=== PATIENT | female | born 1980 | race American Indian/Alaskan Native ===

== ENCOUNTER 2017-05-03 09:45 | Emergency (ER) | payer OTHER ==
[2017-05-03 10:03] VITALS: BP 124/70
--- NOTE | 2017-05-03 10:37 | EDM.PDOC ---
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 This started this morning about 3-4 hours ago. She does have history of in vitro fertilization almost 4 weeks ago. She did have an ultrasound done up in [place] 2 days ago which did show twins within the uterus, visible heart activity according to patient. She did have some slight spotting about a week ago but that was more of a brownish type coloration, nothing acutely red with clots like this morning. She states she did soak at least half a pad this morning and did have some clots and continues to have mild lower pelvic discomfort. The pain does not radiate to her back. There is no upper abdominal pain. No chest pain shoulder pain or difficulty breathing. - Related Data Allergies Allergy/AdvReac Type Severity Reaction Status Date / Time No Known Allergies Allergy Verified 09/30/13 20:06 Home Meds: Home Meds Estradiol. 09/30/13 [History] Past Medical History - Past Health History Medical/Surgical History: Denies Medical/Surgical History Social & Family History - Tobacco Use Smoking Status *Q: Never Smoker Years of Tobacco use: 10 Second Hand Smoke Exposure: No - Caffeine Use Caffeine Use: Reports: None - Alcohol Use Days Per Week of Alcohol Use: 0 - Recreational Drug Use Recreational Drug Use: No ED ROS GENERAL - Review of Systems Review Of Systems: See Below HEENT: Reports: No Symptoms Respiratory: Denies: Shortness of Breath, Pleuritic Chest Pain Cardiovascular: Denies: Chest Pain GI/Abdominal: Reports: Abdominal Pain (There is some lower mid pelvic discomfort ). Denies: Diarrhea, Nausea, Vomiting : Reports: Other (There is been some vaginal bleeding for the past 3 or 4 hours) Musculoskeletal: Denies: Back Pain, Leg Pain Skin: Reports: No Symptoms Neurological: Reports: No Symptoms ED EXAM, RENAL/ - Physical Exam Exam: See Below General Appearance: Alert, Anxious, Mild Distress Throat/Mouth: Normal Inspection, Normal Oropharynx Head: Atraumatic. No: Facial Swelling Neck: Supple Respiratory/Chest: No Respiratory Distress, Lungs Clear, Normal Breath Sounds Cardiovascular: Regular Rate, Rhythm GI/Abdominal: Soft, Other (Referring mild tenderness lower mid pelvis, remainder of abdomen completely soft and nontender). No: Guarding, Rebound (Female) Exam: Other (There is a small amount of blood in the posterior vaginal vault, darkish red with a very small amount of clot present, no tissue visible. Cervix is not dilated.) Extremities: Normal Inspection, Normal Range of Motion Neurological: Oriented, No Motor/Sensory Deficits Course - Vital Signs Last Recorded V/S: Last Vital Signs Temp 97.4 F 05/03/17 09:56 Pulse 81 05/03/17 09:56 Resp 18 05/03/17 09:56 BP 124/70 05/03/17 09:56 Pulse Ox 100 05/03/17 09:56 - Orders/Labs/Meds Orders: Active Orders 24 hr Category Date Time Status OB Transvaginal [US] Stat Exams 05/03/17 11:45 Taken Labs: Laboratory Tests 05/03/17 05/03/17 05/03/17 Range/Units 10:25 10:25 10:25 WBC 11.98 H (3.98-10.04) K/mm3 RBC 4.75 (3.98-5.22) M/mm3 Hgb 13.6 (11.2-15.7) gm/L Hct 40.1 (34.1-44.9) % MCV 84.4 (79.4-94.8) fl MCH 28.6 (25.6-32.2) pg MCHC 33.9 (32.2-35.5) g/dl RDW Std Deviation 38.0 (36.4-46.3) fL Plt Count 325 (182-369) K/mm3 MPV 8.9 L (9.4-12.3) fl Neut % (Auto) 67.7 (34.0-71.1) % Lymph % (Auto) 24.9 (19.3-51.7) % [place] % (Auto) 5.9 (4.7-12.5) % Eos % (Auto) 1.1 (0.7-5.8) Baso % (Auto) 0.2 (0.1-1.2) % Neut # (Auto) 8.12 H (1.56-6.13) K/mm3 Lymph # (Auto) 2.98 (1.18-3.74) K/mm3 [place] # (Auto) 0.71 H (0.24-0.36) K/mm3 Eos # (Auto) 0.13 (0.04-0.36) K/mm3 Baso # (Auto) 0.02 (0.01-0.08) K/mm3 Progesterone ng/mL HCG, Quant 80986.0 mIU/mL Blood Type A POSITIVE Gel Antibody Screen Negative 05/03/17 Range/Units 10:25 WBC (3.98-10.04) K/mm3 RBC (3.98-5.22) M/mm3 Hgb (11.2-15.7) gm/L Hct (34.1-44.9) % MCV (79.4-94.8) fl MCH (25.6-32.2) pg MCHC (32.2-35.5) g/dl RDW Std Deviation (36.4-46.3) fL Plt Count (182-369) K/mm3 MPV (9.4-12.3) fl Neut % (Auto) (34.0-71.1) % Lymph % (Auto) (19.3-51.7) % [place] % (Auto) (4.7-12.5) % Eos % (Auto) (0.7-5.8) Baso % (Auto) (0.1-1.2) % Neut # (Auto) (1.56-6.13) K/mm3 Lymph # (Auto) (1.18-3.74) K/mm3 [place] # (Auto) (0.24-0.36) K/mm3 Eos # (Auto) (0.04-0.36) K/mm3 Baso # (Auto) (0.01-0.08) K/mm3 Progesterone 53.39 ng/mL HCG, Quant mIU/mL Blood Type Gel Antibody Screen - Re-Assessments/Exams Free Text/Narrative Re-Assessment/Exam: 05/03/17 17:13. HCG, labs are as documented. Pelvic ultrasound has been done with this being is somewhat high risk . Report states that there is twin twin A has a heart rate of 111, twin B heart rate of 96. There is a small area of subchorionic hemorrhage versus hematoma in the uterus. See radiology report for details. Departure - Departure Time of Disposition: 13:34 Disposition: Home, Self-Care 01 Clinical Impression: First trimester , Threatened miscarriage in early - Discharge Information Instructions: First Trimester of , [id number], Threatened Miscarriage, [id number] Referrals: PCP,None [Primary Care Provider] - Forms: ED Department Discharge Additional Instructions: Bed rest for the next 2-3 days, then very light activity after that as tolerated , drink plenty of water to maintain hydration, Return to ED if soaking more than 1 pad per hour for more than 2 or 3 hours. 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 and follow up as planned. - My Orders Last 24 Hours: My Active Orders 05/03/17 11:45 OB Transvaginal [US] Stat - Assessment/Plan Last 24 Hours: My Active Orders 05/03/17 11:45 OB Transvaginal [US] Stat
--- NOTE | 2017-05-05 07:32 | US ---
First trimester obstetrical ultrasound (multiple gestation): Multiple real-time images were obtained transvaginally. Comparison: No prior ultrasound for current is available. Findings: Twin gestational sacs are seen. Small subchorionic hemorrhage is identified around the right sided gestational sac. Yolk sac and pole identified within both gestational sacs. Dates: LMP: ? Gestational sac A: Current ultrasound: [facility] 12/26/17, gestational age 6 weeks 1 day Gestational sac B: Current ultrasound: [facility]IE 12/26/17, gestational age 6 weeks 1 day Small nabothian cyst is incidentally noted. Maternal ovaries appear within normal limits. Measurements (Gestational sac A): On right side Gestational sac: 1.52 cm - 6 weeks 1 day [place]-rump length: 0.48 cm - 6 weeks 1 day Heart rate: 96 bpm Measurements (gestational sac B): On the left side Gestational sac: 1.80 cm - 6 weeks 4 days [place]-rump length: 0.44 cm - 6 weeks 1 day Heart rate: 111 bpm Impression: 1. Two gestational sacs. Dates as noted above. 2. Small subchorionic hemorrhage around gestational sac A. 3. No other complicating process is identified at this time by ultrasound exam. Diagnostic code #2 I agree with preliminary report issued by [facility] ([facility] report finalized on 05/03/17, at 2:04 PM Central Time
== END 2017-05-03 14:10 | disposition home or self-care (01) ==
LOC: JD.ED 09:45
DX: O20.0 Threatened abortion (principal); O30.001 Twin pregnancy, unspecified number of placenta and unspecified number of amniotic sacs, first trimester; Z3A.01 Less than 8 weeks gestation of pregnancy
CPT/HCPCS: 36415; 76817; 76817-26; 84144; 84702; 85025; 86850; 86900; 86901; 99283; 99284-25